=== PATIENT | female | born 1940 | race Caucasian/White ===

== ENCOUNTER 2016-08-15 15:10 | Emergency (ER) | payer OTHER, BC ==
[~2016-08-15] VITALS: Ht 124.5 cm; Wt 64.5 kg
[~2016-08-15 15:10] MED LIST: TYLENOL WITH C1 EACH PO
[2016-08-15 15:53] LABS: HEMATOCRIT 46.7 % (36.0-46.0); MCH 27.9 PG (29.0-34.0); MCHC 32.1 G/DL (30.0-36.0); MCV 86.8 FL (83-99); MEAN PLAT.VOLUME 9.2 uM^3 (9.5-12.4); PLATELET COUNT 304 K/uL (156-360); RBC DIS.WIDTH-CV 12.5 % (11.8-14.6); RBC DIS.WIDTH-SD 39.6 % (39-53); RED BLOOD COUNT 5.38 M/uL (3.80-5.20); WHITE BLOOD COUNT 16.2 K/uL (4.1-10.2)
[2016-08-15 16:04] LABS: CHLORIDE 104 mEq/L (99-109); POTASSIUM 3.9 mEq/L (3.7-5.4); SODIUM 141 mEq/L (136-147)
[2016-08-15 16:07] LABS: GLUCOSE 151 mg/dL (70-99)
[2016-08-15 16:08] LABS: ANION GAP 12 MEQ/L (2-14)
[2016-08-15 16:09] LABS: TOTAL BILIRUBIN 4.7 mg/dL (0.0-1.0)
[2016-08-15 16:10] LABS: ALKALINE PHOSPHATASE 181 IU/L (3-129); GFR ESTIMATE (CALCULATED) > 59 mL/min/
[2016-08-15 16:11] LABS: UREA NITROGEN (BUN) 13 mg/dL (9-23)
[2016-08-15 19:34] LABS: ADD MIUA? YES; BILIRUBIN NEGATIVE; BLOOD NEGATIVE; GLUCOSE (STRIP) NEGATIVE; KETONES NEGATIVE; LEUKOCYTES SMALL; NITRITE NEGATIVE; PROTEIN (STRIP) 100; SPECIFIC GRAVITY 1.015 (1.000-1.030)
[2016-08-15 19:35] LABS: COLOR DK YELLOW ((YELLOW))
[2016-08-15 19:38] LABS: BACTERIA RARE /HPF; EPITHELIAL CELLS 1+ /HPF; HYALINE CASTS 0-5 /LPF; MUCUS TRACE /LPF; UCUL ADDED? NO; WHITE BLOOD CELLS 20-30 /HPF (0-5)
[2016-08-15 19:55] LABS: LIPASE 4037 U/L (1.0-51.0)
[2016-08-16 02:22] VITALS: BP 105/55
== END 2016-08-16 02:26 | disposition short-term general hospital (02) ==
LOC: EME 15:10
DX: K85.90 Acute pancreatitis without necrosis or infection, unspecified (principal); K80.50 Calculus of bile duct without cholangitis or cholecystitis without obstruction; I10 Essential (primary) hypertension
CPT/HCPCS: 74176; 80053; 81003; 83690; 85027; 99281; 99285; J2270; J2405; J2543